=== PATIENT | male | born 1960 | race Caucasian/White ===

== ENCOUNTER 2022-05-27 13:32 | Observation (INO) | payer OTHER ==
[~2022-05-27] VITALS: Ht 175.3 cm; Wt 77.1 kg
[~2022-05-27 13:32] MED LIST: AMPDEX10CR PO; FLUO10; HYDMOR2 PO; HYDR-86; LOVA40; Naprosyn500 MG PO; Norco 5-325 Ta1 EACH PO; TAMS.4ER PO
[2022-05-27 14:35] LABS: BASOPHILS ABSOLUTE AUTO 0.06 K/mm3 (0.00-0.23); BASOPHILS PERCENT AUTO 1 % (0-2); EOSINOPHILS ABSOLUTE AUTO 0.14 K/mm3 (0.00-0.68); EOSINOPHILS PERCENT AUTO 1 % (0-6); Hematocrit 43.4 % (37.0-53.0); Hemoglobin 14.8 g/dL (13.5-17.5); IMMATURE GRAN ABSOLUTE AUTO 0.05 K/mm3 (0.00-0.10); IMMATURE GRAN PERCENT AUTO 0 % (0-1); LYMPHOCYTES PERCENT AUTO 10 % (21-46); MONOCYTES PERCENT AUTO 8 % (4-13); Mean Corpuscular HGB Conc 34.1 g/dL (31.5-36.5); Mean Corpuscular Volume 88 fL (80-100); Mean Platelet Volume 9.2 fL (9.1-12.4); NEUTROPHILS PERCENT AUTO 80 % (41-73); Platelet Count 180 K/mm3 (150-400); RDW Coefficient Variation 12.7 % (11.7-14.2); RDW Standard Deviation 40.8 fL (35.1-46.3); Red Blood Cell Count 4.94 M/mm3 (4.30-5.90); White Blood Cell Count 11.25 K/mm3 (4.00-11.30)
[2022-05-27 15:00] LABS: Albumin, Blood 3.7 g/dL (3.4-5.0); Albumin/Globulin Ratio 1.2 (0.8-1.8); Bilirubin, Total 0.3 mg/dL (0.1-1.0); Calcium, Blood 9.7 mg/dL (8.5-10.1); Potassium, Blood 4.1 mmol/L (3.5-5.5); Total Protein, Blood 6.7 g/dL (6.4-8.2)
[2022-05-27 15:58] LABS: Triglycerides 73 mg/dL (30-160)
[2022-05-27 16:18] LABS: International Normalized Ratio 1.02; Prothrombin Time Results 10.7 Sec (9.7-11.5)
[2022-05-27 16:25] LABS: Influenza A, PCR NEGATIVE (NEGATIVE); Influenza B, PCR NEGATIVE (NEGATIVE); Resp Syncytial Virus, PCR NEGATIVE (NEGATIVE); SARS-Cov-2 (COVID-19) PCR, MMC NEGATIVE (NEGATIVE)
[2022-05-27] MEDS ORDERED: ESCITALOPRAM OX10 M1 PO (16:29)
[2022-05-27] MEDS ORDERED: LISI20 PO (16:30)
[2022-05-27] MEDS ORDERED: LOSA50 PO (18:13)
--- NOTE | 2022-05-28 05:43 | NUR ---
SUMMARY NO ISSUES NOTED. PT TX FOR DISCOMFORT ORDERED WITH RELIEF. PT VOIDING WELL AND TAKING IN FLUIDS WELL. CALL LIGHT IN REACH.
[2022-05-28] MEDS ORDERED: Norco 5-325 Ta1 EACH PO (10:19)
== END 2022-05-28 10:47 | disposition home or self-care (01) ==
LOC: ER 13:32 → SURS 15:32 → ER 15:32 → SURS 15:33
PROVIDERS: Physician Assistant; Student in an Organized Health Care Education/Training Program; ADMIT Surgery
PROC: 0DNU4ZZ Release Omentum, Percutaneous Endoscopic Approach (ICD-10-PCS; principal; 2022-05-27 16:00)
DX: K56.52 Intestinal adhesions [bands] with complete obstruction (principal); I10 Essential (primary) hypertension; F90.9 Attention-deficit hyperactivity disorder, unspecified type; E78.00 Pure hypercholesterolemia, unspecified; K85.90 Acute pancreatitis without necrosis or infection, unspecified; K46.0 Unspecified abdominal hernia with obstruction, without gangrene; E78.5 Hyperlipidemia, unspecified; Z88.5 Allergy status to narcotic agent; Z88.8 Allergy status to other drugs, medicaments and biological substances
CPT/HCPCS: 0241U; 36415; 74176; 80053; 83605; 83615; 83690; 84478; 84484; 85025; 85610; 85730; 86850; 86900; 86901; 96374; 96375; 99285-25; A9270; J0690; J1100; J1170; J1885; J2250; J2405; J2704; J2795; J3010; J7030; J7120

== ENCOUNTER → 2024-05-19 | Outpatient (CLI) | payer OTHER ==
[~2024-05-19] MED LIST changes: +ESCITALOPRAM OX10 M1 PO; +LISI20 PO; +LOSA50 PO
[2024-05-19 11:14] LABS: BASOPHILS ABSOLUTE AUTO 0.05 K/mm3 (0.00-0.23); BASOPHILS PERCENT AUTO 1 % (0-2); EOSINOPHILS ABSOLUTE AUTO 0.24 K/mm3 (0.00-0.68); EOSINOPHILS PERCENT AUTO 4 % (0-6); Hematocrit 43.6 % (37.0-53.0); Hemoglobin 14.8 g/dL (13.5-17.5); IMMATURE GRAN ABSOLUTE AUTO 0.01 K/mm3 (0.00-0.10); IMMATURE GRAN PERCENT AUTO 0 % (0-1); LYMPHOCYTES PERCENT AUTO 21 % (21-46); MONOCYTES PERCENT AUTO 12 % (4-13); Mean Corpuscular HGB 30.3 pg (26.0-34.0); Mean Corpuscular HGB Conc 33.9 g/dL (31.5-36.5); Mean Corpuscular Volume 89 fL (80-100); Mean Platelet Volume 8.7 fL (9.1-12.4); NEUTROPHILS PERCENT AUTO 62 % (41-73); Platelet Count 203 K/mm3 (150-400); RDW Standard Deviation 42.3 fL (35.1-46.3); Red Blood Cell Count 4.88 M/mm3 (4.30-5.90)
[2024-05-19 11:27] LABS: Albumin, Blood 3.4 g/dL (3.4-5.0); Albumin/Globulin Ratio 1.1 (0.8-1.8); Bilirubin, Total 0.4 mg/dL (0.1-1.0); Bun/Creatinine Ratio 11.8 (12.0-20.0); Creatinine, Blood 1.1 mg/dL (0.60-1.20); Globulin, Blood 3.1 g/dL (2.2-4.0); Potassium, Blood 3.9 mmol/L (3.5-5.5); Total Protein, Blood 6.5 g/dL (6.4-8.2)
== END ==
LOC: LAB SHORT 11:08 → LAB 11:08
PROVIDERS: Family Medicine
DX: I10 Essential (primary) hypertension (principal)
CPT/HCPCS: 80053; 85025

== ENCOUNTER 2024-08-15 07:07 | Day surgery (SDC) | payer OTHER ==
[~2024-08-15] VITALS: Ht 175.3 cm; Wt 81.5 kg
[~2024-08-15 07:07] MED LIST changes: +Lactated Ringer's 1,000 ML IV ONE; +Lidocaine 1%-Epineph 1:100000 20 ML MDV ONE
[2024-08-15] MEDS ORDERED: Lactated Ringer's 1,000 ML IV ONE (08:00)
[2024-08-15] MEDS ORDERED: Midazolam HCl 1MG / ML 2ML Vial ONE (08:01)
--- NOTE | 2024-08-15 08:01 | NUR ---
08/15/24 0802 Lu Evans TIME OUT AT 0743 TO CONFIRM CORRECT PT, PROCEDURE, SITE, AND ALLERIGES. PT ELECTED TO PROCEED WITH BLOCK. TOLERATED WELL. 10CC LIDOCAINE 1% [id number] WITH BICARB 1CC 8.4%
[2024-08-15] MEDS ORDERED: propofoL 20 ML IV ONE (08:02)
[2024-08-15 09:02] VITALS: BP 119/87
== END 2024-08-15 08:58 | disposition home or self-care (01) ==
LOC: ORSCSDS 07:07
PROVIDERS: Orthopaedic Surgery
PROC: 0LN80ZZ Release Left Hand Tendon, Open Approach (ICD-10-PCS; principal; 2024-08-15 08:30)
PROC: 01N54ZZ Release Median Nerve, Percutaneous Endoscopic Approach (ICD-10-PCS; principal; 2024-08-15 08:30)
DX: G56.02 Carpal tunnel syndrome, left upper limb (principal); M65.352 Trigger finger, left little finger; I10 Essential (primary) hypertension; E78.5 Hyperlipidemia, unspecified; F90.9 Attention-deficit hyperactivity disorder, unspecified type; F32.A Depression, unspecified; F41.9 Anxiety disorder, unspecified; Z79.899 Other long term (current) drug therapy
CPT/HCPCS: J2250; J2704; J7120

== ENCOUNTER 2024-08-29 16:03 | Emergency (ER) | payer OTHER ==
[~2024-08-29] VITALS: Ht 175.3 cm; Wt 79.4 kg
[~2024-08-29 16:03] MED LIST changes: -Lactated Ringer's 1,000 ML IV ONE; -Lidocaine 1%-Epineph 1:100000 20 ML MDV ONE
[2024-08-29] MEDS ORDERED: Ondansetron HCl 2 MG / ML 2ML Vial IV PRN (16:15)
[2024-08-29 16:33] LABS: BASOPHILS ABSOLUTE AUTO 0.07 K/mm3 (0.00-0.23); BASOPHILS PERCENT AUTO 1 % (0-2); EOSINOPHILS ABSOLUTE AUTO 0.12 K/mm3 (0.00-0.68); EOSINOPHILS PERCENT AUTO 2 % (0-6); Hematocrit 44.1 % (37.0-53.0); Hemoglobin 15.4 g/dL (13.5-17.5); IMMATURE GRAN ABSOLUTE AUTO 0.02 K/mm3 (0.00-0.10); IMMATURE GRAN PERCENT AUTO 0 % (0-1); LYMPHOCYTES ABSOLUTE AUTO 1.36 K/mm3 (0.84-5.20); LYMPHOCYTES PERCENT AUTO 20 % (21-46); MONOCYTES ABSOLUTE AUTO 0.55 K/mm3 (0.16-1.47); MONOCYTES PERCENT AUTO 8 % (4-13); Mean Corpuscular HGB 30.8 pg (26.0-34.0); Mean Corpuscular HGB Conc 34.9 g/dL (31.5-36.5); Mean Corpuscular Volume 88 fL (80-100); Mean Platelet Volume 8.9 fL (9.1-12.4); NEUTROPHILS ABSOLUTE AUTO 4.74 K/mm3 (1.96-9.15); NEUTROPHILS PERCENT AUTO 69 % (41-73); Platelet Count 243 K/mm3 (150-400); RDW Coefficient Variation 12.6 % (11.7-14.2); RDW Standard Deviation 40.6 fL (35.1-46.3); White Blood Cell Count 6.86 K/mm3 (4.00-11.30)
[2024-08-29 17:03] LABS: Albumin/Globulin Ratio 1.3 (0.8-1.8); Bilirubin, Total 0.6 mg/dL (0.1-1.0); Calcium, Blood 9.2 mg/dL (8.5-10.1); Potassium, Blood 4.2 mmol/L (3.5-5.5)
[2024-08-29] MEDS ORDERED: Amphetamine Sal15 MG PO (18:04)
[2024-08-29 18:06] VITALS: BP 138/94
== END 2024-08-29 18:58 | disposition home or self-care (01) ==
LOC: ER 16:03
PROVIDERS: Emergency Medicine
DX: R10.31 Right lower quadrant pain (principal); K40.20 Bilateral inguinal hernia, without obstruction or gangrene, not specified as recurrent; K42.9 Umbilical hernia without obstruction or gangrene; N20.0 Calculus of kidney; E78.00 Pure hypercholesterolemia, unspecified; Z88.5 Allergy status to narcotic agent; Z91.041 Radiographic dye allergy status; Z79.899 Other long term (current) drug therapy
CPT/HCPCS: 74176; 80053; 85025; 96374-59; 99284-25; J2405

== ENCOUNTER 2024-10-07 11:28 | Day surgery (SDC) | payer OTHER ==
[~2024-10-07] VITALS: Ht 172.7 cm; Wt 82.4 kg
[2024-10-07] VITALS (12 sets, daily range): BP systolic 110–151; BP diastolic 81–97
[~2024-10-07 11:28] MED LIST changes: +Acetaminophen 500 MG Tab PO SCH; +Amphetamine Sal15 MG PO; +Lactated Ringer's 1,000 ML IV SCH
--- NOTE | 2024-10-07 12:30 | NUR ---
Ambulatory in Day Surgery History, Chart, Medications and Allergies reviewed before start of procedure.Lungs clear T/O to Auscultation.Pt denies Hx of Asthma. Sats>95% on r/a and no noted sob. Patient confirms NPO status and agrees with scheduled surgery. Patient reports completing Chlorhexadine shower X2 prior to admission to hospital.Surgical site prepped with 2% Chlorhexidine cloth wipe. Patient States Post-Procedure ride home has been arranged.
[2024-10-07] MEDS ORDERED: FentaNYL Citrate 50 MCG/ML 5 ML Injection ONE (13:28)
[2024-10-07] MEDS ORDERED: propofoL 20 ML IV ONE (13:28)
[2024-10-07] MEDS ORDERED: Bupivacaine 0.5% HCl 5 MG/ML 30MLVIAL ONE (13:33)
[2024-10-07] MEDS ORDERED: Rocuronium Bromide 10 MG/ML 5ML Injection IV ONE ×2 (14:07→14:14)
[2024-10-07] MEDS ORDERED: Ondansetron HCl 2 MG / ML 2ML Vial ONE (14:07)
[2024-10-07] MEDS ORDERED: Metoclopramide HCl 5MG / ML 2ML Vial ONE (14:07)
[2024-10-07] MEDS ORDERED: Sugammadex Sodium 200 MG/2ML SDV (100 MG/ML) ONE (15:02)
[2024-10-07] MEDS ORDERED: FentaNYL Citrate 50 MCG/ML 2 ML Injection ONE ×2 (15:31→16:08)
[2024-10-07] MEDS ORDERED: HYDROcodone 5-APAP 325 TAB PO PRN (15:40)
--- NOTE | 2024-10-07 16:00 | NUR ---
INTO STEP. PT A&OX4-REPORTS 06/08 ABDOMINAL/INCISONAL PAIN. PORT SITE X 4 WITH EXOFEN C/D/I. PT DENIES NAUSEA OR SOB-PT PROVIDED WITH PO FOOD AND FLUIDS.
[2024-10-07] MEDS ORDERED: FentaNYL Citrate 50 MCG/ML 2 ML Injection IV ONE (16:10)
--- NOTE | 2024-10-07 16:57 | NUR ---
REVIEWED DISCHARGE INSTRUCTIONS WITH PT AND HIS SPOUSE RODDY. BOTH VERBALIZE UNDERSTANDING. PT DISCHARGED TO HOME-OUT VIA WHEELCHAIR WITH BELONGINGS AND DISCHARGE INSTRUCTIONS ON HAND. RX-SENT TO [facility] IN [place].
== END 2024-10-07 17:00 | disposition home or self-care (01) ==
LOC: ORSCMMR 11:28 → ORD 13:00 → ORSCMMR 13:00
PROVIDERS: Surgery
PROC: 0YU54JZ Supplement Right Inguinal Region with Synthetic Substitute, Percutaneous Endoscopic Approach (ICD-10-PCS; principal; 2024-10-07 13:00)
PROC: 8E0W4CZ Robotic Assisted Procedure of Trunk Region, Percutaneous Endoscopic Approach (ICD-10-PCS; principal; 2024-10-07 13:00)
DX: K40.91 Unilateral inguinal hernia, without obstruction or gangrene, recurrent (principal); I10 Essential (primary) hypertension; Z79.899 Other long term (current) drug therapy
CPT/HCPCS: A9270; C1781; J2405; J2704; J2765; J3010; J7120